=== PATIENT | male | born 1970 | race Caucasian/White ===

== ENCOUNTER 2018-02-10 08:35 | Day surgery (SDC) ==
[2018-02-10] MEDS: TETRACAINE 0.5% UNIT-DOSE OP PRN ×2 (09:30→09:59)
[2018-02-10] MEDS: BETADINE OPTH PREP OP PRN ×2 (09:30→09:59)
[2018-02-10] MEDS: CYCLOGYL 2% OPTH OP PRN ×3 (09:31→09:41)
[2018-02-10] MEDS ORDERED: LIDOCAINE 1%/PHENYLEPHRINE 1.5% BSS (SURGERY) INTRAOCULA ONE (09:37)
[2018-02-10] MEDS ORDERED: DEX-MOXI-KETOR OPTH INJ 1/0.5/0.4 MG/ML IO ONE (09:37)
[2018-02-10] MEDS ORDERED: ZOFRAN 4 MG/2 ML IVP ONE (09:37)
[2018-02-10] MEDS ORDERED: BRIMONIDINE TARTRATE 0.2% OPTH SOL OP PRN (09:37)
[2018-02-10] MEDS ORDERED: BSS WITH EPINEPHRINE OP ONE (09:37)
[2018-02-10] MEDS ORDERED: LIDOCAINE 1% 20 ML MDV ID STA (09:37)
[2018-02-10 09:44] VITALS: TEMP 98.6
[2018-02-10] MEDS ORDERED: VERSED ONE (10:12)
[2018-02-10] MEDS ORDERED: SUBLIMAZE ONE (10:12)
[2018-02-10] MEDS ORDERED: ZOFRAN 4 MG/2 ML ONE (10:12)
[2018-02-11 13:05] VITALS: BP 142/66
== END 2018-02-10 11:20 | disposition home or self-care (01) ==
LOC: SURG 08:35
PROVIDERS: ATTEND Ophthalmology
DX: H25.11 Age-related nuclear cataract, right eye (principal)

== ENCOUNTER → 2018-02-24 | Day surgery (SDC) ==
[~2018-02-24] MED LIST: BRIMONIDINE TARTRATE 0.2% OPTH SOL OP PRN; BSS WITH EPINEPHRINE OP ONE; DEX-MOXI-KETOR OPTH INJ 1/0.5/0.4 MG/ML IO ONE; LIDOCAINE 1% 20 ML MDV ID STA; LIDOCAINE 1%/PHENYLEPHRINE 1.5% BSS (SURGERY) INTRAOCULA ONE; SUBLIMAZE ONE; TORADOL ONE; VERSED ONE; ZOFRAN 4 MG/2 ML IVP ONE; ZOFRAN 4 MG/2 ML ONE
[2018-02-24] MEDS: BETADINE OPTH PREP OP PRN ×2 (07:40→08:00)
[2018-02-24] MEDS: TETRACAINE 0.5% UNIT-DOSE OP PRN ×3 (07:40→08:10)
[2018-02-24] MEDS: CYCLOGYL 2% OPTH OP PRN ×3 (07:41→07:51)
[2018-02-24 07:49] VITALS: TEMP 98.6
[2018-02-25 10:53] VITALS: BP 138/68
== END ==
LOC: SURG 07:21
PROVIDERS: ATTEND Ophthalmology
DX: H25.12 Age-related nuclear cataract, left eye (principal)